=== PATIENT | female | born 1980 | race Caucasian/White ===

== ENCOUNTER 2019-06-29 05:07 | Emergency (ER) | payer MEDICARE, MEDICAID, SELFPAY ==
[2019-06-29 05:09] VITALS: BP 137/84; PULSE 92; RESP 18; TEMP 36.7; O2SAT 97; BMI 39.4
--- NOTE | 2019-06-29 05:11 | ED_ITS ---
Entered by Samantha Loomis, acting as scribe for Kenzie Bernard HPI - Dental/Oral General: Chief complaint: Dental/Oral Stated complaint: dental pain Time Seen by Provider: 06/29/19 05:12 Source: patient and EMS Mode of arrival: EMS History of Present Illness: HPI Narrative: 38 y/o female presents to the ED with complaint of dental pain for the past 3 hours. EMS states she has been self medicating with ETOH, marijuanna and Tylenol. Pt states she was dx with a dental abscess 3 months ago and was placed on abx by her dentist. When it did not improve, she saw her PCP and was prescribed another abx ( Clindamycin). She had significant improvement with the pain and swelling up until 3 weeks ago when she had increasing hot/cold sensitivity. She states the pain became significantly worse around 0100 this AM and she is here for pain meds and more abx. Pt also has high levels of anxiety. MD Complaint: tooth pain Onset (ago): hour(s) (4) Duration: constant Severity: moderate Exacerbating factors: cold and heat Context: history of dental caries and poor dental care Associated symptoms: Denies fever(s) Treatment prior to arrival: other (ETOH, marijuanna, Tylenol) Review of Systems General: Reports: other (negative unless marked) Const: Denies: fever, chills, body aches, fatigue, malaise or diaphoresis Eyes: Denies: change in vision or blurry vision Card: Denies: chest pain, palpitations, irregular heart rhythm, syncope, pre- syncope, shortness of breath on exertion or shortness of breath when lying down Resp: Denies: shortness of breath, productive cough, non-productive cough, wheezing, coughing up blood or chest congestion GI: Denies: abdominal pain, nausea, vomiting, vomiting blood, coffee grounds in vomit, diarrhea, constipation, cramping, blood in stool or black tarry stool : Denies: flank pain, painful urination, urinary frequency, urinary urgency, decreased urine ouput, urinary incontinence or blood in urine Musc: Denies: neck pain, back pain, extremity pain, extremity swelling, joint pain, joint swelling, joint warmth or joint stiffness Skin/Breast: Denies: rash, skin tenderness or yellow skin Neuro: Denies: headache, numbness in extremities, weakness in extremities, changes in sensation, lack of coordination, difficulty walking, dizziness, vertigo or confusion Endo: Denies: excessive thirst, tired all the time, cold intolerance, excessive sweating, flushing or hot flashes Bear/Lymph: Denies: easy bruising, easy bleeding, petechiae or enlarged lymph nodes PFSH ED PFSH: Social History Smoking and tobacco status: current every day smoker Physical Exam Const: COMMON NORMALS: no apparent distress, oriented x3, no limitations, healthy appearing and well nourished EXAM LIMITATIONS: no altered mental status GENERAL APPEARANCE: cooperative and well developed ORIENTATION/CONSCIOUSNESS: Yes awake HENMT: COMMON NORMALS: normocephalic, head/scalp atraumatic, hearing grossly normal bilaterally, external ears normal, EAC's normal, external nose normal and moist oral mucous membranes HEAD & SCALP: normal to inspection, normocephalic and atraumatic FACE & SINUS: normal facial exam and face symmetric NOSE: external nose normal and nares normal EXTERNAL EAR: Yes external ears normal EXTERNAL AUDITORY CANAL: EAC's normal TEETH & GINGIVA: Yes other (Diffuse poor dentition. Area of maximal tenderness along left posterior dental line. No obvious abscess. No sign of Seb's angina, deep space infection or mandible swelling.) Eye: COMMON NORMALS: PERRL, EOMs intact bilaterally, conjunctivae normal and no scleral icterus GENERAL EYE: normal appearance of both eyes and normal light reflex CONJUNCTIVA: Yes conjunctivae normal SCLERA: sclerae normal CORNEA: Yes corneas normal PUPIL: Yes PERRL DIRECT OPHTHALMOSCOPY: Yes normal light reflex Neck/C-Spine: COMMON NORMALS: full ROM, no lymphadenopathy, supple, no m eningeal signs and no JVD GENERAL: Yes normal visual inspection and Yes trachea midline CERVICAL SPINE: Yes cervical ROM normal Chest: COMMONS NORMALS: inspection of chest normal and palpation of chest normal Resp: COMMON NORMALS: normal respiratory effort, no retractions, no use of accessory muscles and clear to auscultation bilaterally EFFORT & INSPECTION: Yes able to speak in complete sentences AUSCULTATION: clear to auscultation bilaterally Cardio: COMMON NORMALS: no JVD, regular rate, regular rhythm, S1 normal heart sound, S2 normal heart sound, no gallops, no clicks, no murmurs and no rub JUGULAR VENOUS DISTENTION: no JVD RATE: regular rate RHYTHM: regular rhythm HEART SOUNDS: S1 normal and S2 normal GI: COMMON NORMALS: soft to palpation, non-tender, no hepatosplenomegaly and no masses INSPECTION: Yes normal to inspection PALPATION: Yes soft and Yes no hepatosplenomegaly : COMMON NORMALS: Yes no CVA tenderness BLADDER/KIDNEY EXAM: Yes no CVA tenderness Back/Pelvis: COMMON NORMALS: no CVA tenderness, thoracic and lumbar spine normal to inspection, no thoracic nor lumbar tenderness and thoraco-lumbar ROM normal Extremity: COMMON NORMALS: normal to inspection, full ROM, normal capillary refill, no joint enlargement, no clubbing, cyanosis or edema and no calf tenderness Neuro: COMMON NORMALS: oriented x3, CN's II-XII intact bilaterally, moves all extremities, no focal motor deficits and no sensory deficits noted MENINGEAL SIGNS: Yes no meningeal signs Skin: COMMON NORMALS: no rashes or lesions noted, skin turgor normal, no jaundice, no petechiae and no mottling GENERAL SKIN EXAM: no rashes or lesions noted and turgor normal Course Vital Signs: Vital signs: Vital Signs Temperature 98.1 F 06/29/19 05:09 Pulse Rate 92 06/29/19 05:09 Respiratory Rate 18 06/29/19 05:09 Blood Pressure 137/84 06/29/19 05:09 Pulse Oximetry 97 06/29/19 05:09 MDM - Dental/Oral MDM Narrative: Medical decision making narrative: The patient has overall very poor dentition in her mouth diffusely but there is no sign of dental abscess, there is no sign of Seb's angina, airway compromise or otherwise. There is no sign of deep space infection. The patient I believe can be sent home with conservative care with oral antibiotics and follow-up with a dentist. She is in agreement. Discharge Plan Discharge Patient Disposition: Home, Self-Care Clinical Impression: Toothache, Dental caries Condition: Stable Prescriptions: New Cleocin HCl 150 mg capsule 300 mg PO Q6H 10 Days Qty: 80 RF: 0 Motrin IB 200 mg tablet 800 mg PO Q8H PRN (Reason: pain) 5 Days Qty: 20 RF: 0 No Action albuterol sulfate 90 mcg/actuation Hfa Aerosol Inhaler 1 inh INHALATION QID PRN (Reason: Bronchodilation) RF: 0 Discharge Orders: Discharge Order (Routine); Ordered 06/29/19 Ordered By: Kenzie Bernard Discharge Diet: GI Soft Discharge Activity: Increase activity as tolerated Patient Instructions: Dental Caries (ED), Toothache (ED) Activity Restrictions/Additional Instructions: Please return to the ER immediately for any of the signs or symptoms listed on your discharge instruction sheets, worsening/changing of your symptoms, you are not getting better as quickly as expected, or for ANY other cause or concerns. Return to the ER for increased pain, facial swelling, fever, vomiting, or for any other cause for concern. Be certain to follow-up with the dentist of your choice as soon as possible for recheck and further evaluation and care. Coding Level of Care Code ED Fiscal Analyst for Chg Fwd Exam Comprehensive The documentation recorded by the Vladislav peterson Ashley, accurately reflects the service I personally performed and the decisions made by , Kenzie Bernard
--- NOTE | 2019-06-29 05:33 | PC.NURSE ---
Introduced self to patient and initiated vital signs. Patient presents A&O x 4. NAD, ABCs intact, MAEW and agreeable to treatment. Respirations are even and unlabored. Pt states medications taken before coming to ER are marijuana, methamphetimines, alcohol, and tylenol (11). Pt states that the chief complaint for the ER visit today is due to left side upper and lower dental pain which resolved in EMS. Pt denies any vision disturbances or lightheadedness. Bed left in lowest position in semi-fowlers with side rails up.Reassured patient of needs and will continue to monitor.
[2019-06-29] MEDS: HYDROcodone-acetaminophen 5-325 mg Tablet 1 TAB PO (05:48)
[2019-06-29] MEDS: clindamycin 150 mg Capsule 450 MG PO (05:49)
--- NOTE | 2019-06-29 06:03 | PC.NURSE ---
Transportation arranged - Confirmation #[id number]
[2019-06-29 06:14] VITALS: BP 133/80; PULSE 84; RESP 16; O2SAT 96
== END 2019-06-29 06:15 | disposition home or self-care (01) ==
LOC: ER 07-07 11:15
PROVIDERS: Emergency Provider Emergency Medicine
DX: K02.9 Dental caries, unspecified (principal); F17.210 Nicotine dependence, cigarettes, uncomplicated; F41.9 Anxiety disorder, unspecified
CPT/HCPCS: 99281; 99283

== ENCOUNTER 2019-08-25 15:00 | Emergency (ER) | payer MEDICARE, MEDICAID, SELFPAY ==
[2019-08-25 15:00] VITALS: BP 139/83; PULSE 86; RESP 20; TEMP 36.6; O2SAT 97; BMI 38.9
--- NOTE | 2019-08-25 15:16 | XR_ITS ---
WS: [id number] RIGHT FIRST FINGER 3 VIEW TECHNIQUE: PA, oblique and lateral. HISTORY: osteomyelitis COMPARISON: None available. No fracture, dislocation or joint abnormality. No significant soft tissue swelling. XR/XR finger RT min 2V [id number] IMPRESSION: No evidence for osteomyelitis.
[2019-08-25 15:29] VITALS: BP 114/90; PULSE 91; RESP 18; O2SAT 97
[2019-08-25] MEDS: HYDROcodone-acetaminophen 5-325 mg Tablet 2 TAB PO (15:41)
--- NOTE | 2019-08-25 16:03 | W.ED.EXTPRO ---
HPI - Extremity Problem General: Chief complaint: Extremity Problem,Nontraumatic Stated complaint: right THUMB PAIN Time Seen by Provider: 08/25/19 15:01 History of Present Illness: HPI Narrative: Patient has a wound to the palmar aspect of her right thumb appears to be infected. There is a slight amount of mucopurulent drainage. There is redness around the site however there is no lymphangitis. Patient states she does not know how the wound got there. Patient does however admit to IV drug use. MD Complaint: extremity pain and extremity swelling Onset (ago): day(s) Pain Consistency: constant Location: right Severity scale (1-10): >10 Quality: stabbing, aching, sharp and constant Radiation: none Relieving factors: nothing Exacerbating factors: range of motion and palpation Review of Systems General: Reports: 10 or more systems reviewed and unremarkable except in HPI and below PFSH ED PFSH: Social History Smoking and tobacco status: current every day smoker Female Reproductive History: Date of last menstrual period: 09/19/14 Physical Exam Extremity: RIGHT UPPER EXTREMITY: Yes hand & digits (1 mm diameter wound with mucopurulent discharge, redness around the site.) Course Vital Signs: Vital signs: Vital Signs Temperature 97.9 F 08/25/19 15:00 Pulse Rate 91 08/25/19 15:29 Respiratory Rate 18 08/25/19 15:29 Blood Pressure 114/90 08/25/19 15:29 Pulse Oximetry 97 08/25/19 15:29 Discharge Plan Discharge Patient Disposition: Home, Self-Care Clinical Impression: Cellulitis Qualifiers: Site of cellulitis: extremity Site of cellulitis of extremity: finger Laterality: right Qualified Code(s): L03.011 - Cellulitis of right finger Open wound of thumb Qualifiers: Encounter type: initial encounter Laterality: right Qualified Code(s): S61.001A - Unspecified open wound of right thumb without damage to nail, initial encounter Condition: Stable Prescriptions: New Bactrim DS 800-160 mg tablet 1 tab PO BID 14 Days Qty: 28 RF: 0 Keflex 500 mg capsule 500 mg PO Q6H 10 Days Qty: 40 RF: 0 No Action albuterol sulfate 90 mcg/actuation Hfa Aerosol Inhaler 1 inh INHALATION QID PRN (Reason: Bronchodilation) RF: 0 albuterol sulfate 2.5 mg /3 mL (0.083 %) solution for nebulization 2.5 mg inhalation Q6H PRN (Reason: Shortness Of Breath) RF: 0 ibuprofen 200 mg Capsule 1,200 mg PO ONCE RF: 0 oxycodone 5 mg Capsule 5 mg PO ONCE RF: 0 Discharge Orders: Discharge Order (Routine); Ordered 08/25/19 Ordered By: Brady Faulkner Referrals: Mickey Hernandez [Primary Care Provider] - Patient Instructions: Cellulitis (ED) Coding Level of Care Code ED Group Practice Pediatrician for Chg Fwd Exam Problem Focused
[2019-08-25 16:04] VITALS: BP 116/71; PULSE 81; RESP 18; O2SAT 97
[2019-08-25] MEDS: ceFAZolin 1,000 mg SDV 2000 MG IM (16:13)
[2019-08-25 16:53] VITALS: BP 110/75; PULSE 93; RESP 16
== END 2019-08-25 16:55 | disposition home or self-care (01) ==
PROVIDERS: Emergency Provider Family Medicine; PCP Physician Assistant Medical
DX: M79.644 Pain in right finger(s) (principal); L03.011 Cellulitis of right finger; F17.210 Nicotine dependence, cigarettes, uncomplicated
CPT/HCPCS: 12345; 73140; 96372; 99282; 99283; J0690

== ENCOUNTER 2022-03-15 13:30 | Outpatient (CLI) | payer MEDICARE, MEDICAID, SELFPAY ==
--- NOTE | 2022-03-15 13:48 | MM_ITS ---
WS: [id number] BILATERAL 3D TOMOSYNTHESIS DIGITAL MAMMOGRAPHY WITH CAD CLINICAL INFORMATION: DISCHARGE HISTORY: LEFT breast discharge COMPARISON: None. TECHNIQUE: 3 views of bilateral breasts were obtained. FINDINGS: Scattered fibroglandular densities bilaterally. No suspicious focal mass, asymmetry, calcifications, or architectural distortion. No suspicious mammo graphic nodule or asymmetry about the LEFT areola. Ultrasound LEFT breast described below. ULTRASOUND BREAST LEFT TECHNIQUE: Ultrasound left breast focused area of concern. CLINICAL INFORMATION: DISCHARGE FINDINGS: Ultrasound LEFT breast about the areola. Normal underlying subareolar breast tissue. No cystic or ebony id lesions. No significant ductal ectasia. No suspicious findings about the LEFT nipple. MM/[place] [id number] IMPRESSION: BI-RADS: 2-Benign FOLLOW UP: 1 Year Follow-up Recommend return to annual screening mammography.
== END 2022-03-15 13:31 | disposition home or self-care (01) ==
PROVIDERS: PCP Physician Assistant Medical
DX: N64.52 Nipple discharge (principal)
CPT/HCPCS: 76642; 77062

== ENCOUNTER 2022-07-19 10:42 | Emergency (ER) | payer MEDICARE, MEDICAID, SELFPAY ==
[2022-07-19 11:25] VITALS: BP 137/83; PULSE 80; RESP 18; TEMP 36.6; O2SAT 98
--- NOTE | 2022-07-19 11:29 | XR_ITS ---
WS: [id number] Right wrist, 3 views, 07/19/2022 Clinical Data: fall, wrist pain Comparison: None. Findings: No fractures or dislocations are seen. The carpal bones are intact. There is no soft tissue swelling. The distal radius and ulna are not remarkable. XR/XR wrist RT min 3V* [id number] Impression: Negative right wrist.
--- NOTE | 2022-07-19 12:34 | ED_ITS ---
HPI - Extremity Problem General: Chief complaint: Extremity Injury, Upper Stated complaint: right wrist injury Time Seen by Provider: 07/19/22 12:26 History of Present Illness: Patient is a 42-year-old female comes to the ED with right wrist injury. Injury occurred approximately 5 days ago. Patient was rollerskating and lost her balance and fell landing on extended right arm. She has been having pain to her wrist along with swelling. She has a Velcro wrist splint that she has been wearing. She rates her pain currently a 4 out of 10. She has limited range of motion in wrist due to pain. Associated symptoms: Deny chest pain, fever(s) or rash Review of Systems Const: Denies: fever(s), chills or fatigue Eyes: Denies: change in vision or eye discomfort ENMT: Denies: throat pain, odynophagia, nasal discharge or nasal congestion Card: Denies: chest pain, palpitations, edema, swelling of feet/ankles, dyspnea on exertion or orthopnea Resp: Denies: dyspnea, productive cough or non-productive cough GI: Denies: abdominal pain, nausea, vomiting, diarrhea, constipation or hematochezia : Denies: flank pain, dysuria or hematuria Musc: Reports: extremity pain (right wrist), extremity swelling (Right wrist) and limited range of motion (Right wrist); Denies: neck pain or back pain Skin/Breast: Denies: rash or new lesions Neuro: Denies: headache(s), numbness in extremities or weakness in extremities PFS ED PFSH: Medical History (Updated 07/19/22 @ 16:49 by AYSE Veloz) No pertinent family history Surgical History (Updated 07/19/22 @ 16:49 by AYSE Veloz) No pertinent past surgical history Social History Smoking and tobacco status: current every day smoker Physical Exam Const: COMMON NORMALS: no acute distress, patient oriented x3 and alert HENMT: COMMON NORMALS: normocephalic HEAD & SCALP: normocephalic MOUTH: Normal oral and palatal mucosa present THROAT: posterior oropharynx normal and uvula midline Neck/C-Spine: COMMON NORMALS: supple GENERAL: Yes normal visual inspection Resp: COMMON NORMALS: normal respiratory effort, No retractions, No use of accessory muscles and clear to auscultation bilaterally AUSCULTATION: clear to auscultation bilaterally Cardio: COMMON NORMALS: regular rate, regular rhythm, S1 normal heart sound present, S2 normal heart sound present, No gallops present (Cardio), No clicks present (Cardio), No murmurs present (Cardio) and Peripheral pulses 2+ throughout RATE: regular rate RHYTHM: regular rhythm HEART SOUNDS: S1 normal heart sound present and S2 normal heart sound present PERIPHERAL PULSES: Peripheral pulses 2+ throughout GI: COMMON NORMALS: Normal to inspection, nondistended, normoactive bowel sounds present, Soft to palpation, non-tender and no masses PALPATION: Yes Soft to palpation : COMMON NORMALS: Yes no CVA tenderness BLADDER/KIDNEY EXAM: Yes no CVA tenderness Back/Pelvis: COMMON NORMALS: no CVA tenderness Extremity: NARRATIVE EXTREMITY EXAM: Right wrist?no visible deformity noted. Tenderness over radial aspect of wrist. Neurovascular intact distally. Limited range of motion (extension of wrist) due to pain. Neuro: COMMON NORMALS: patient oriented x3 SENSORIUM/ORIENTATION: Yes alert GAIT: Yes Normal gait present Skin: GENERAL SKIN EXAM: dry skin Course Vital Signs: Vital signs: Vital Signs Temperature 97.9 F 07/19/22 11:25 Pulse Rate 80 07/19/22 11:25 Respiratory Rate 18 07/19/22 11:25 Blood Pressure 137/83 07/19/22 11:25 Pulse Oximetry 98 07/19/22 11:25 Oxygen Delivery Me thod 07/19/22 11:25 MDM - Extremity (Nontraumatic) Medical Decision Making Patient is a 42-year-old female comes to the ED with right wrist injury. Injury occurred approximately 5 days ago. Patient was rollerskating and lost her balance and fell landing on extended right arm. She has been having pain to her wrist along with swelling. She has a Velcro wrist splint that she has been wearing. She rates her pain currently a 4 out of 10. She has limited range of motion in wrist due to pain. Vitals stable. Right wrist?no visible deformity noted. Tenderness over radial aspect of wrist. Neurovascular intact distally. Limited range of motion (extension of wrist) due to pain. Right wrist x-ray?no acute findings. Patient was diagnosed with right wrist sprain and was stable for discharge home. Told to follow-up with PCP in the next week for reevalua tion. Patient understood and agreed with plan. Lab Data Radiology Impressions Wrist X-Ray 07/19/22 11:29 Impression: Negative right wrist. Discharge Plan Discharge Patient Disposition: Home Clinical Impression: Right wrist sprain Qualifiers: Encounter type: initial encounter Qualified Code(s): S63.501A - Unspecified sprain of right wrist, initial encounter Condition: Stable Prescriptions: No Action albuterol sulfate 90 mcg/actuation Hfa Aerosol Inhaler 1 inh INHALATION QID PRN (Reason: Bronchodilation) albuterol sulfate 2.5 mg /3 mL (0.083 %) solution for nebulization 2.5 mg inhalation Q6H PRN (Reason: Shortness Of Breath) Rx Instructions: HASNT STARTED YET ibuprofen 200 mg Capsule 1,200 mg PO ONCE oxycodone 5 mg Capsule 5 mg PO ONCE Rx Instructions: PT STATES SHE OBTAINED 5MG OXYCODONE FOR PAIN TO TAKE TODAY Discharge Orders: Discharge ED (Routine); Ordered 07/19/22 Ordered By: Colin Ng Referrals: Mickey Hernandez [Primary Care Provider] - Discharge Diet: Regular Discharge Activity: Increase activity as tolerated Patient Instructions: Wrist Sprain (ED) Activity Restrictions/Additional Instructions: Follow-up with medical provider as directed in the next 5 to 7 days for reevaluation. Take [id number] ibuprofen or Tylenol daily for pain. Continue wearing Velcro wrist splint for the next couple days to help with symptoms. Return to the ER or your medical provider if condition worsens. Please read and understand discharge instructions. Thank you for choosing [facility] for your healthcare needs today. Hali krueger realize this is an emergency room and that we are providing you with a medical screening exam and this may not be complete and all inclusive of all the testing and or work up that you may need to determine your ailment or severity of your illness. It is very important that you follow up as instructed or that you return to the Emergency Department should you have concerns or if your condition changes or worsens in any way. Coding Level of Care Code ED Horticulture/Floriculture Teacher for Kelly Villa
== END 2022-07-19 13:10 | disposition home or self-care (01) ==
PROVIDERS: Emergency Provider Physician Assistant; PCP Physician Assistant Medical
DX: S63.501A Unspecified sprain of right wrist, initial encounter (principal); F17.210 Nicotine dependence, cigarettes, uncomplicated; W18.39XA Other fall on same level, initial encounter; Y93.51 Activity, roller skating (inline) and skateboarding
CPT/HCPCS: 73110; 99283

== ENCOUNTER 2022-09-27 22:02 | Emergency (ER) | payer MEDICARE, MEDICAID, SELFPAY ==
[2022-09-27 22:11] VITALS: BP 188/76; PULSE 88; RESP 16; TEMP 36.7; O2SAT 92
[2022-09-27 23:04] VITALS: BP 126/69; PULSE 75; RESP 20; O2SAT 96
[2022-09-27 23:13] LABS: Basophils # 0.1 10^3/uL (0.0-0.1); Basophils % 0.5 %; Eosinophils # 0.2 10^3/uL (0.0-0.8); Hematocrit 44.7 % (37.0-47.0); Lymphocytes # 3.8 10^3/uL (0.8-4.8); Lymphocytes % 21.6 %; Mean Corpuscular HGB Conc 31.3 g/dL (30.0-36.0); Mean Corpuscular Hemoglobin 28.3 pg (28.0-34.0); Mean Corpuscular Volume 90.3 fl (81-99); Mean Platelet Volume 9.8 fL (7.4-10.4); Monocytes # 0.6 10^3/uL (0.2-0.9); Monocytes % 3.5 %; Neutrophils # 12.73 10^3/uL (1.8-7.7); Neutrophils % 72.3 %; Nucleated Red Blood Cells % 0 %; Platelet Count 326 10^3/cmm (130-400); Red Blood Count 4.95 10^6/uL (4.1-5.3); Red Cell Distribution Width 14.4 % (12.1-15.1); White Blood Count 17.6 10^3/uL (4.0-10.0)
[2022-09-27 23:31] LABS: Alanine Aminotransferase 11 U/L (0-33); Albumin Level 4.5 g/dL (3.5-5.2); Alkaline Phosphatase 79 U/L (35-105); Aspartate Amino Transferase 18 U/L (0-32); Blood Urea Nitrogen 14 mg/dL (6-20); Calcium 9.4 mg/dL (8.5-10.5); Carbon Dioxide 25 mmol/L (22-29); Chloride 104 mmol/L (98-107); Globulin 2.7 g/dL (1.3-4.6); Glomerular Filtration Rate 110.2 mL/min (90-130); Glucose 102 mg/dL (65-115); Lipase 35 U/L (13-60); Osmolality Calculated 295 mOsm/kg (285-295); Sodium 142 mmol/L (136-145); Total Bilirubin 0.3 mg/dL (0.15-1.2); Total Protein 7.2 g/dL (6.6-8.7)
[2022-09-27] MEDS: dicyclomine 10 mg Capsule PO (23:35)
[2022-09-27 23:36] LABS: Add Urine Microscopic? NO; Charge for UA Resulting for Rev
[2022-09-27 23:37] LABS: Urine Appearance Clear (CLEAR); Urine Color Yellow (Yellow); pH Urine 6 (5-7)
[2022-09-27 23:38] LABS: Bilirubin Urine Neg (Negative); Blood Urine Neg (Negative); Glucose Urine UA Norm (Normal); Ketones Urine Negative (Negative); Leukocyte Esterase Urine Negative (Negative); Nitrate Urine Negative (Negative); Protein Urine Neg (Negative); Urobilinogen Urine Norm (Negative)
[2022-09-27 23:51] LABS: HCG Qualitative Urine. Negative (Negative)
[2022-09-28] LABS: Anion Gap 17.8 (5-19); Potassium 4.8 mmol/L (3.5-5.1)
--- NOTE | 2022-09-28 00:06 | CTR_ITS ---
PROCEDURE INFORMATION: Exam: CT Abdomen And Pelvis Without Contrast Exam date and time: 09/28/2022 12:22 AM Age: 42 years old Clinical indication: Abdominal pain; Localized; Right lower quadrant (rlq); Prior surgery; Surgery date: 6+ months; Surgery type: Gb; Patient HX: C/O rlq pain. ; Additional info: Rlq abd pain TECHNIQUE: Imaging protocol: Computed tomography of the abdomen and pelvis without contrast. Radiation optimization: All CT scans at this facility use at least one of these dose optimization techniques: automated exposure control; mA and/or kV adjustment per patient size (includes targeted exams where dose is matched to clinical indication); or iterative reconstruction. REPORTING DATA: Count of CT and Cardiac NM exams in prior 12 months: This patient has received 0 known CTs and 0 known cardiac nuclear medicine studies in the 12 months prior to the current study. COMPARISON: No relevant prior studies available. RADIATION DOSE METRICS: Total DLP (mGy-cm): 1165.31 FINDINGS: Liver: Hepatic steatosis. Gallbladder and bile ducts: Cholecystectomy. Pancreas: Normal. No ductal dilation. Spleen: Normal. No splenomegaly. Adrenal glands: Normal. No mass. Kidneys and ureters: Normal. No hydronephrosis. Stomach and bowel: Unremarkable. No obstruction. No mucosal thickening. Appendix: No evidence of appendicitis. Intraperitoneal space: Unremarkable. No free air. No significant fluid collection. Vasculature: Unremarkable. No abdominal aortic aneurysm. Lymph nodes: Unremarkable. No enlarged lymph nodes. Urinary bladder: Unremarkable as visualized. Reproductive: Unremarkable as visualized. Bones/joints: Unremarkable. No acute fracture. Soft tissues: Small umbilical hernia containing omentum without bowel. CT/CT abdomen pelvis wo con [id number] IMPRESSION: 1. Negative for acute inflammatory process in the abdomen or pelvis. 2. Hepatic steatosis. 3. Cholecystectomy. 4. Small umbilical hernia containing omentum without bowel.
[2022-09-28 00:30] VITALS: BP 130/85
--- NOTE | 2022-09-28 00:32 | XRR_ITS ---
PROCEDURE INFORMATION: Exam: XR Chest Exam date and time: 09/28/2022 12:40 AM Age: 42 years old Clinical indication: Cough; Prior surgery; Surgery date: 6+ months; Surgery type: Gb TECHNIQUE: Imaging protocol: Radiologic exam of the chest. Views: 2 views. COMPARISON: CT abdomen pelvis con [id number] 09/28/2022 12:22 AM FINDINGS: Lungs: Unremarkable. No consolidation. Pleural spaces: Unremarkable. No pleural effusion. No pneumothorax. Heart/Mediastinum: Unremarkable. No cardiomegaly. Bones/joints: Unremarkable. XR/XR chest 2V* [id number] IMPRESSION: No acute findings.
--- NOTE | 2022-09-28 00:35 | ED_ITS ---
Documented by User: LILIANA Garrett 09/28/22 01:30 HPI - Abdominal Pain General: Chief Complaint: Abdominal Pain Stated Complaint: ABD PAIN Time Seen by Provider: 09/27/22 22:13 History of Present Illness: Patient is in for right lower quadrant abdominal pain. Patient reports that for the past couple of months she has had intermittent pain in her right side lower abdomen. She reports worst pain today. She states that she also had a bowel movement today with approximately quarter cup of maroon blood. She denies hemorrhoids. She denies fever or chills, but states that she has been extremely fatigued for 2 days. She just completed a round of antibiotics and steroids for upper respiratory infection. She denies any possibility of . She denies vomiting.She does offer that she is a previous IV drug user methamphetamine. She states that she is currently in drug court Associated Symptoms: Reports hematochezia and nausea; Denies chills, constipation, diarrhea, dysuria, fever(s) and vomiting Review of Systems Const: Denies: fever(s) or chills Card: Denies: chest pain or palpitations Resp: Reports: non-productive cough and wheezing; Denies: dyspnea or productive cough GI: Reports: abdominal pain, nausea and hematochezia; Denies: vomiting, diarrhea or constipation : Denies: flank pain, difficulty voiding or dysuria Neuro: Denies: headache(s) PFS ED PFSH: Medical History No pertinent family history Surgical History No pertinent past surgical history Social History Smoking and tobacco status: current every day smoker Physical Exam 2 Const: COMMON NORMALS: no acute distress, patient oriented x3 and alert NUTRITIONAL APPEARANCE: obese morbidly obese Neck/C-Spine: COMMON NORMALS: no JVD Resp: COMMON NORMALS: normal respiratory effort, No use of accessory muscles and clear to auscultation bilaterally AUSCULTATION: clear to auscultation bilaterally Cardio: COMMON NORMALS: no JVD, regular rate, regular rhythm, S1 normal heart sound present and S2 normal heart sound present RATE: regular rate RHYTHM: regular rhythm HEART SOUNDS: S1 normal heart sound present and S2 normal heart sound present GI: COMMON NORMALS: Soft to palpation INSPECTION: Yes normal to inspection AUSCULTATION: Yes normoactive bowel sounds PALPATION: Yes Soft to palpation and Yes Tenderness to palpation present (GI) Details: RLQ and RUQ RECTAL EXAM: visual inspection normal and normal sphincter tone OTHER: No stool present. No bleeding noted. No internal hemorrhoids appreciated on digital rectal exam Neuro: COMMON NORMALS: patient oriented x3 SENSORIUM/ORIENTATION: Yes alert Course Vital Signs: Vital signs: Vital Signs Temperature 98.0 F 09/27/22 22:11 Pulse Rate 80 09/28/22 01:39 Respiratory Rate 14 09/28/22 01:39 Blood Pressure 123/79 09/28/22 01:39 Pulse Oximetry 94 09/28/22 01:39 Oxygen Delivery Me thod Room Air 09/28/22 00:57 MDM - Abdominal Pain Medical Decision Making White blood cell count is elevated at 17.6. Patient is allergic to IV push diet and states that she has reaction even with the premedication. She request not to be given IV push dye today. CT abdomen and pelvis without contrast was ordered. Patient did not have a bowel movement while in the ER. Digital rectal exam was normal. UA and chest x-ray both negative. CT abdomen and pelvis negative for acute inflammatory process. Likely that the white blood cell count is elevated secondary to recent steroid taper. Refer patient for further evaluation by GI given her reported blood in her stools. I discussed all results of testing with her today. Patient is agreeable and wishes to be discharged to home. She is agreeable to outpatient follow-up. She understands that she should return to the emergency department for any new or worsening sym ptoms. Lab Data 09/27/22 22:55 09/27/22 22:55 Labs/Radiology: Radiology Impressions Abdomen/Pelvis CT 09/28/22 00:06 IMPRESSION: 1. Negative for acute inflammatory process in the abdomen or pelvis. 2. Hepatic steatosis. 3. Cholecystectomy. 4. Small umbilical hernia containing omentum without bowel. Chest X-Ray 09/28/22 00:32 IMPRESSION: No acute findings. Laboratory Results WBC 17.6 10^3/uL (4.0-10.0) H 09/27/22 22:55 RBC 4.95 10^6/uL (4.1-5.3) 09/27/22 22:55 Hgb 14.0 g/dL (11.5-15.3) 09/27/22 22:55 Hct 44.7 % (37.0-47.0) 09/27/22 22:55 MCV 90.3 fl (81-99) 09/27/22 22:55 MCH 28.3 pg (28.0-34.0) 09/27/22 22:55 MCHC 31.3 g/dL (30.0-36.0) 09/27/22 22:55 RDW 14.4 % (12.1-15.1) 09/27/22 22:55 Plt Count 326 10^3/cmm (130-400) 09/27/22 22:55 MPV 9.8 fL (7.4-10.4) 09/27/22 22:55 Neut % (Auto) 72.3 % 09/27/22 22:55 Lymph % (Auto) 21.6 % 09/27/22 22:55 Hale % (Auto) 3.5 % 09/27/22 22:55 Eos % (Auto) 1.0 % 09/27/22 22:55 Baso % (Auto) 0.5 % 09/27/22 22:55 Neut # (Auto) 12.73 10^3/uL (1.8-7.7) H 09/27/22 22:55 Lymph # (Auto) 3.8 10^3/uL (0.8-4.8) 09/27/22 22:55 Hale # (Auto) 0.6 10^3/uL (0.2-0.9) 09/27/22 22:55 Eos # (Auto) 0.2 10^3/uL (0.0-0.8) 09/27/22 22:55 Baso # (Auto) 0.1 10^3/uL (0.0-0.1) 09/27/22 22:55 Nucleated RBC % (auto) 0 % 09/27/22 22:55 Nucleated RBCs # 0.0 /100WBC 09/27/22 22:55 Sodium 142 mmol/L (136-145) 09/27/22 22:55 Potassium 4.8 mmol/L (3.5-5.1) 09/27/22 22:55 Chloride 104 mmol/L (98-107) 09/27/22 22:55 Carbon Dioxide 25 mmol/L (22-29) 09/27/22 22:55 Anion Gap 17.8 (5-19) 09/27/22 22:55 BUN 14 mg/dL (6-20) 09/27/22 22:55 Creatinine 0.6 mg/dL (0.5-0.9) 09/27/22 22:55 GFR Calculation 110.2 mL/min (90-130) 09/27/22 22:55 Glucose 102 mg/dL (65-115) 09/27/22 22:55 Calculated Osmolality 295 mOsm/kg (285-295) 09/27/22 22:55 Calcium 9.4 mg/dL (8.5-10.5) 09/27/22 22:55 Total Bilirubin 0.3 mg/dL (0.15-1.2) 09/27/22 22:55 AST 18 U/L (0-32) 09/27/22 22:55 ALT 11 U/L (0-33) 09/27/22 22:55 Alkaline Phosphatase 79 U/L (35-105) 09/27/22 22:55 Total Protein 7.2 g/dL (6.6-8.7) 09/27/22 22:55 Albumin 4.5 g/dL (3.5-5.2) 09/27/22 22:55 Globulin 2.7 g/dL (1.3-4.6) 09/27/22 22:55 Lipase 35 U/L (13-60) 09/27/22 22:55 HCG, Qual Negative (Negative) 09/27/22 23: Urine Color Yellow (Yellow) 09/27/22 23:31 Urine Appearance Clear (CLEAR) 09/27/22 23: Urine pH 6 (5-7) 09/27/22 23: Ur Specific [place] 1.020 (1.005-1.030) 09/27/22 23: Urine Protein Neg (Negative) 09/27/22 23:31 Urine Glucose (UA) Norm (Normal) 09/27/22 23: Urine Ketones Negative (Negative) 09/27/22 23: Urine Blood Neg (Negative) 09/27/22 23:31 Urine Nitrate Negative (Negative) 09/27/22 23:31 Urine Bilirubin Neg (Negative) 09/27/22 23:31 Urine Urobilinogen Norm mg/dL (Negative) 09/27/22 23:31 Ur Leukocyte Esterase Negative (Negative) 09/27/22 23:31 Discharge Plan Discharge Patient Disposition: Home Clinical Impression: Abdominal pain Condition: Stable Prescriptions: New dicyclomine 10 mg capsule 10 mg PO TID PRN (Reason: Abdominal cramping) Qty: 10 0RF No Action albuterol sulfate 90 mcg/actuation Hfa Aerosol Inhaler 1 inh INHALATION QID PRN (Reason: Bronchodilation) albuterol sulfate 2.5 mg /3 mL (0.083 %) solution for nebulization 2.5 mg inhalation Q6H PRN (Reason: Shortness Of Breath) Rx Instructions: HASNT STARTED YET ibuprofen 200 mg Capsule 1,200 mg PO ONCE oxycodone 5 mg Capsule 5 mg PO ONCE Rx Instructions: PT STATES SHE OBTAINED 5MG OXYCODONE FOR PAIN TO TAKE TODAY Discharge Orders: Discharge ED (Routine); Ordered 09/28/22 Ordered By: Azucena Colindres Referrals: Mickey Hernandez [Primary Care Provider] - Discharge Diet: Usual diet Discharge Activity: Resume usual activity Patient Instructions: Abdominal Pain (ED) Activity Restrictions/Additional Instructions: You were evaluated for abdominal pain today. Your urine does not show any signs of infection, your chest x-ray did not show any signs of acute infection your labs are all unremarkable except for an elevated white blood cell count which is likely secondary to your recent steroid taper. Your CT of your abdomen did not show any acute processes. I have consulted case management to help facilitate a referral to GI for further evaluation of the reported rectal bleeding. Follow- up with your primary care provider. 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[employer] Documented by User: Godfrey Jimenez DO 09/28/22 05:56 HPI - Abdominal Pain General: Chief Complaint: Abdominal Pain Stated Complaint: ABD PAIN Time Seen by Provider: 09/27/22 22:13 [facility] ED PFSH: Medical History No pertinent family history Surgical History No pertinent past surgical history Social History Smoking and tobacco status: current every day smoker Course Vital Signs: Vital signs: Vital Signs Temperature 98.0 F 09/27/22 22:11 Pulse Rate 80 09/28/22 01:39 Respiratory Rate 14 09/28/22 01:39 Blood Pressure 123/79 09/28/22 01:39 Pulse Oximetry 94 09/28/22 01:39 Oxygen Delivery Me thod Room Air 09/28/22 00:57 MDM - Abdominal Pain Medical Decision Making White blood cell count is elevated at 17.6. Patient is allergic to IV push diet and states that she has reaction even with the premedication. She request not to be given IV push dye today. CT abdomen and pelvis without contrast was ordered. Patient did not have a bowel movement while in the ER. Digital rectal exam was normal. UA and chest x-ray both negative. CT abdomen and pelvis negative for acute inflammatory process. Likely that the white blood cell count is elevated secondary to recent steroid taper. Refer patient for further evaluation by GI given her reported blood in her stools. I discussed all results of testing with her today. Patient is agreeable and wishes to be discharged to home. She is agreeable to outpatient follow-up. She understands that she should return to the emergency department for any new or worsening symptoms. Chart reviewed and patient discussed with midlevel. Agree with assessment and plan. Lab Data 09/27/22 22:55 09/27/22 22:55 Labs/Radiology: Radiology Impressions Abdomen/Pelvis CT 09/28/22 00:06 IMPRESSION: 1. Negative for acute inflammatory process in the abdomen or pelvis. 2. Hepatic steatosis. 3. Cholecystectomy. 4. Small umbilical hernia containing omentum without bowel. Chest X-Ray 09/28/22 00:32 IMPRESSION: No acute findings. Laboratory Results WBC 17.6 10^3/uL (4.0-10.0) H 09/27/22 22:55 RBC 4.95 10^6/uL (4.1-5.3) 09/27/22 22:55 Hgb 14.0 g/dL (11.5-15.3) 09/27/22 22:55 Hct 44.7 % (37.0-47.0) 09/27/22 22:55 MCV 90.3 fl (81-99) 09/27/22 22:55 MCH 28.3 pg (28.0-34.0) 09/27/22 22:55 MCHC 31.3 g/dL (30.0-36.0) 09/27/22 22:55 RDW 14.4 % (12.1-15.1) 09/27/22 22:55 Plt Count 326 10^3/cmm (130-400) 09/27/22 22:55 MPV 9.8 fL (7.4-10.4) 09/27/22 22:55 Neut % (Auto) 72.3 % 09/27/22 22:55 Lymph % (Auto) 21.6 % 09/27/22 22:55 Hale % (Auto) 3.5 % 09/27/22 22:55 Eos % (Auto) 1.0 % 09/27/22 22:55 Baso % (Auto) 0.5 % 09/27/22 22:55 Neut # (Auto) 12.73 10^3/uL (1.8-7.7) H 09/27/22 22:55 Lymph # (Auto) 3.8 10^3/uL (0.8-4.8) 09/27/22 22:55 Hale # (Auto) 0.6 10^3/uL (0.2-0.9) 09/27/22 22:55 Eos # (Auto) 0.2 10^3/uL (0.0-0.8) 09/27/22 22:55 Baso # (Auto) 0.1 10^3/uL (0.0-0.1) 09/27/22 22:55 Nucleated RBC % (auto) 0 % 09/27/22 22:55 Nucleated RBCs # 0.0 /100WBC 09/27/22 22:55 Sodium 142 mmol/L (136-145) 09/27/22 22:55 Potassium 4.8 mmol/L (3.5-5.1) 09/27/22 22:55 Chloride 104 mmol/L (98-107) 09/27/22 22:55 Carbon Dioxide 25 mmol/L (22-29) 09/27/22 22:55 Anion Gap 17.8 (5-19) 09/27/22 22:55 BUN 14 mg/dL (6-20) 09/27/22 22:55 Creatinine 0.6 mg/dL (0.5-0.9) 09/27/22 22:55 GFR Calculation 110.2 mL/min (90-130) 09/27/22 22:55 Glucose 102 mg/dL (65-115) 09/27/22 22:55 Calculated Osmolality 295 mOsm/kg (285-295) 09/27/22 22:55 Calcium 9.4 mg/dL (8.5-10.5) 09/27/22 22:55 Total Bilirubin 0.3 mg/dL (0.15-1.2) 09/27/22 22:55 AST 18 U/L (0-32) 09/27/22 22:55 ALT 11 U/L (0-33) 09/27/22 22:55 Alkaline Phosphatase 79 U/L (35-105) 09/27/22 22:55 Total Protein 7.2 g/dL (6.6-8.7) 09/27/22 22:55 Albumin 4.5 g/dL (3.5-5.2) 09/27/22 22:55 Globulin 2.7 g/dL (1.3-4.6) 09/27/22 22:55 Lipase 35 U/L (13-60) 09/27/22 22:55 HCG, Qual Negative (Negative) 09/27/22: Urine Color Yellow (Yellow) 09/27/22: Urine Appearance Clear (CLEAR) 09/27/22 23: Urine pH 6 (5-7) 09/27/22 23: Ur Specific [place] 1.020 (1.005-1.030) 09/27/22 23:31 Urine Protein Neg (Negative) 09/27/22 23: Urine Glucose (UA) Norm (Normal) 09/27/22 23:31 Urine Ketones Negative (Negative) 09/27/22 23:31 Urine Blood Neg (Negative) 09/27/22 23:31 Urine Nitrate Negative (Negative) 09/27/22 23:31 Urine Bilirubin Neg (Negative) 09/27/22 23:31 Urine Urobilinogen Norm mg/dL (Negative) 09/27/22 23:31 Ur Leukocyte Esterase Negative (Negative) 09/27/22 23:31 Discharge Plan Discharge Patient Disposition: Home Clinical Impression: Abdominal pain Condition: Stable Prescriptions: New dicyclomine 10 mg capsule 10 mg PO TID PRN (Reason: Abdominal cramping) Qty: 10 0RF No Action albuterol sulfate 90 mcg/actuation Hfa Aerosol Inhaler 1 inh INHALATION QID PRN (Reason: Bronchodilation) albuterol sulfate 2.5 mg /3 mL (0.083 %) solution for nebulization 2.5 mg inhalation Q6H PRN (Reason: Shortness Of Breath) Rx Instructions: HASNT STARTED YET ibuprofen 200 mg Capsule 1,200 mg PO ONCE oxycodone 5 mg Capsule 5 mg PO ONCE Rx Instructions: PT STATES SHE OBTAINED 5MG OXYCODONE FOR PAIN TO TAKE TODAY Discharge Orders: Discharge ED (Routine); Ordered 09/28/22 Ordered By: Azucena Colindres Referrals: Mickey Hernandez [Primary Care Provider] - Discharge Diet: Usual diet Discharge Activity: Resume usual activity Patient Instructions: Abdominal Pain (ED) Activity Restrictions/Additional Instructions: You were evaluated for abdominal pain today. Your urine does not show any signs of infection, your chest x-ray did not show any signs of acute infection your labs are all unremarkable except for an elevated white blood cell count which is likely secondary to your recent steroid taper. Your CT of your abdomen did not show any acute processes. I have consulted case management to help facilitate a referral to GI for further evaluation of the reported rectal bleeding. Follow- up with your primary care provider. 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
[2022-09-28 00:57] VITALS: PULSE 86; RESP 18; O2SAT 94
[2022-09-28 01:39] VITALS: BP 123/79; PULSE 80; RESP 14; O2SAT 94
--- NOTE | 2022-09-28 08:23 | DCPLANNER ---
Addendum entered by Mei Gupta 10/25/22 09:02: Patient had a follow up appointment scheduled with general surgery - patient did attend appointment. Addendum entered by Mei Gupta 10/08/22 10:38: Patient has a follow up appointment scheduled for Saturday, October 24, 2022 at 2:[address] Agosto at general surgery. Original Note: power manager had message to schedule a follow up appointment for patient with general surgery. power manager sent patients information to the front office staff at general surgery. Patients information will be printed and reviewed. Clinic will call patient with appointment information.
== END 2022-09-28 01:43 | disposition home or self-care (01) ==
PROVIDERS: Emergency Provider Nurse Practitioner Family; PCP Physician Assistant Medical
DX: R10.31 Right lower quadrant pain (principal); K42.9 Umbilical hernia without obstruction or gangrene; F17.210 Nicotine dependence, cigarettes, uncomplicated
CPT/HCPCS: 36415; 71046; 74176; 80053; 81003; 81025; 83690; 85025; 99285

== ENCOUNTER → 2022-10-24 13:43 | Outpatient (BNVA) | payer MEDICARE, MEDICAID, SELFPAY | PROVIDERS: PCP Nurse Practitioner Family; Visit Provider Surgery | DX: K92.1 Melena (principal); K21.9 Gastro-esophageal reflux disease without esophagitis | CPT/HCPCS: 99203 ==

== ENCOUNTER → 2022-10-25 10:00 | Outpatient (BNVA) | payer MEDICARE, MEDICAID, SELFPAY | PROVIDERS: PCP Nurse Practitioner Family; Visit Provider Specialist | DX: G56.03 Carpal tunnel syndrome, bilateral upper limbs (principal) | CPT/HCPCS: 95910; 95912 ==

== ENCOUNTER 2022-11-22 10:09 | Day surgery (SDC) | payer MEDICARE, MEDICAID, SELFPAY ==
[2022-11-20 12:20] VITALS: BMI 51.5
[2022-11-22 10:28] VITALS: BP 148/84; PULSE 92; RESP 18; TEMP 36.2; O2SAT 97
[2022-11-22] MEDS: sodium chloride 0.9% 1,000 ML 30 ML IV (10:54)
--- NOTE | 2022-11-22 11:25 | ANES.PREANE2 ---
Pre-Anesthetic Assessment Height/Weight: Height 1.63 m Weight 136.078 kg Temp Pulse Resp BP Pulse Ox O2 Del Method 97.1 F L 92 18 148/84 97 Room Air 11/22/22 10:28 11/22/22 10:28 11/22/22 10:28 11/22/22 10:28 11/22/22 10:28 11/22/22 10:28 Operation Date: 11/22/22 11:15 Proposed Procedures p [id number] egd [id number] colon K92.1,K21.9(Not Applicable) - DO rikki Ramírez Colonoscopy(Not Applicable) - Saad Agosto DO Familial anesthetic complications: none Was Beta Arden taken within 24 hours: N/A Was Clonidine taken within 24 hours: N/A Last intake: Intake Last Liquid Date 11/21/22 Last Liquid Time 22:20 Last Solid Date 11/20/22 Last Solid Time 22:20 Social Tobacco and No alcohol Exam alert, oriented x 3, clear to auscultation bilaterally and regular rate & rhythm Airway Mallampati: Class II Dentition: other (no teeth) Pulmonary Asthma GI Gastroesophageal Reflux Disease Metabolic Morbid Obesity Anesthetic Plan ASA status: 3 Anesthesia: MAC Risk of > 500 ml blood loss (7ml/kg in children): No Medications/Allergies Home Medications Medication Instructions Recorded Confirmed Last Taken Type albuterol sulfate 90 mcg/actuation 1 inh inhalation QID PRN 06/29/19 11/22/22 11/20/22 History aerosol inhaler Bronchodilation albuterol sulfate 2.5 mg/3 mL 2.5 mg inhalation Q6H PRN 08/25/19 11/22/22 10/23/22 History (0.083 %) solution for nebulization Shortness Of Breath ibuprofen 200 mg capsule 800 mg PO ONCE 08/25/19 11/20/22 11/20/22 History pantoprazole 40 mg tablet,delayed 40 mg PO BID 6 weeks #84 tabs 10/24/22 11/22/22 11/20/22 Rx release (Protonix) Allergies Allergy/AdvReac Type Severity Reaction Status Date / Time Iodinated Contrast Media Allergy ALGY-Rash Verified 11/20/22 12:18 Current Medications Generic Name Dose Route Start Last Admin Trade Name Freq PRN Reason Stop Dose Admin Sodium Chloride 1,000 mls @ 30 mls/hr 11/22/22 10:15 07/13/23 10:54 Sodium Chloride 0.9% IV 11/23/22 10:14 30 mls/hr .Q24H JUAN MANUEL Administration PFSH Anesthesia Medical History Hx of pilonidal cyst MRSA (methicillin resistant Staphylococcus aureus) No pertinent family history Surgical History Hx laparoscopic cholecystectomy Hx of section 2 Hx of tonsillectomy Hx of tubal ligation No pertinent past surgical history Family History Mother Cancer breast Grandmother Cancer liver cancer Social History Smoking and tobacco status: current every day smoker Data Anesthesia Cardiac Studies: No Data to Display
--- NOTE | 2022-11-22 11:30 | W.PM.OPSUD ---
Surgery/Procedure H&P Update DATE OF PROCEDURE: November 22, 2022 DATE H&P PERFORMED: 10/24/22 H&P UPDATE INFORMATION: I have reviewed H&P completed within last 30 days, I have examined patient prior to procedure and No changes to prior documentation PLANNED PROCEDURE: Operation Date: 11/22/22 11:15 Proposed Procedures p [id number] egd [id number] colon K92.1,K21.9(Not Applicable) - DO rikki Ramírez Colonoscopy(Not Applicable) - Saad Agosto DO
[2022-11-22 12:33] VITALS: BP 96/61; PULSE 96; RESP 16; TEMP 36.3; O2SAT 93
[2022-11-22 12:43] VITALS: BP 112/73; PULSE 96; RESP 16; O2SAT 100
--- NOTE | 2022-11-22 12:50 | ANE.PACU2 ---
Inpatient post-anesthesia follow up: Airway intact: Yes Vital signs: Temperature 97.4 F Pulse Rate 93 Respiratory Rate 18 Blood Pressure 131/68 Pulse Oximetry 94 Oxygen Delivery Me thod Room Air Oxygen Flow Rate Fraction of Inspir ed Oxygen Hydration adequate: Yes Nausea and vomiting: No Pain level: 1 Mental status: Baseline
[2022-11-22 12:53] VITALS: BP 131/68; PULSE 93; RESP 18; O2SAT 94
== END 2022-11-22 13:00 | disposition home or self-care (01) ==
PROVIDERS: PCP Nurse Practitioner Family; Visit Provider Surgery
PROC: 0DJ08ZZ Inspection of Upper Intestinal Tract, Via Natural or Artificial Opening Endoscopic (ICD-10-PCS; CPT 43235; principal; 2022-11-22 11:15)
PROC: 0DJD8ZZ Inspection of Lower Intestinal Tract, Via Natural or Artificial Opening Endoscopic (ICD-10-PCS; CPT 45378; 2022-11-22 11:15)
DX: K92.1 Melena (principal); K21.9 Gastro-esophageal reflux disease without esophagitis; J45.909 Unspecified asthma, uncomplicated; E66.01 Morbid (severe) obesity due to excess calories; Z68.43 Body mass index [BMI] 50.0-59.9, adult; K29.50 Unspecified chronic gastritis without bleeding; D12.5 Benign neoplasm of sigmoid colon
CPT/HCPCS: 43239; 45385; 76937; 88305; J2704; J3490; J7030

== ENCOUNTER → 2023-01-02 15:55 | Outpatient (BNVA) | payer MEDICARE, MEDICAID, SELFPAY | PROVIDERS: PCP Nurse Practitioner Family; Visit Provider Surgery | DX: Z09 Encounter for follow-up examination after completed treatment for conditions other than malignant neoplasm (principal) | CPT/HCPCS: 99212 ==